=== PATIENT | female | born 1995 | race Caucasian/White ===

== ENCOUNTER 2016-09-03 17:19 | Emergency (ER) | payer MEDICAID ==
[~2016-09-03] VITALS: Ht 165.1 cm; Wt 63.0 kg
[2016-09-03 17:35] VITALS: BP 148/92
== END 2016-09-03 21:25 | disposition home or self-care (01) ==
LOC: ER 18:00
DX: S92.355A Nondisplaced fracture of fifth metatarsal bone, left foot, initial encounter for closed fracture (principal); W10.9XXA Fall (on) (from) unspecified stairs and steps, initial encounter; Y93.89 Activity, other specified; Y92.89 Other specified places as the place of occurrence of the external cause; Y99.8 Other external cause status
CPT/HCPCS: 29515; 73630; 81025; 99284; Z7610